=== PATIENT | female | born 1960 | race Two or more races ===

== ENCOUNTER 2018-04-11 12:57 | Outpatient (CLI) | payer OTHER ==
[~2018-04-11] VITALS: Ht 149.9 cm; Wt 75.7 kg
[2018-04-11 13:15] VITALS: BP 130/84
[2018-04-11] MEDS ORDERED: NO MEDICATION (13:22)
--- NOTE | 2018-04-11 13:34 | GI Initial Consult Note ---
History of Present Illness General Date patient seen: Apr 11, 2018 Time patient seen: 13:33 Referring physician: HMO Reason for Consultation: Screening colonoscopy Present Illness HPI 57 year old female patient presents today for screening colonoscopy. Denies any GI symptoms; denies any abdominal pain, N/V/D or constipation. Ambulatory in no distress. Denies any unintentional weight loss or changes in dietary habits. No signs of abuse or neglect. Patient is not fall risk. No history of endoscopy / colonoscopy. Home Meds Reported Medications [No Medication ] No Conflict Check 04/11/18 Med list reviewed/reconciled: Yes Allergies: Coded Allergies: No Known Allergies (Unverified , 04/11/18) Patient History History Provided By: Patient, Medical Record Past Medical History: none Past Surgical History: other - Tubal ligation. Family History Narrative Mother had colon CA Social History: Reports: other - coffee; Denies: smoking, alcohol use, drug use Review of Systems All Other Systems: negative except mentioned in HPI Physical Exam Vital Signs Date Time Temp Pulse Resp B/P (MAP) Pulse Ox O2 Delivery O2 Flow Rate FiO2 04/11/18 13:15 97.9 63 16 130/84 97 Sp02 EP Interpretation: reviewed, normal General Appearance: well appearing, no apparent distress, alert Head: normocephalic EENT: PERRL/EOMI, normal ENT inspection Neck: supple Respiratory: normal breath sounds, no respiratory distress Cardiovascular: normal rate Gastrointestinal: normal inspection, non tender, soft, normal bowel sounds, non -distended Rectal: deferred Genitourinary: no CVA tenderness Musculoskeletal: normal inspection, back normal Neurologic: normal inspection, alert, oriented x3, responsive Psychiatric: normal inspection, judgement/insight normal, memory normal Skin: normal inspection, normal color, no rash, warm/dry, palpation normal, well hydrated Lymphatic: normal inspection, no adenopathy GI: Plan Problems: (1) Colonoscopy planned Plan EGD/colonoscopy to be scheduled pending PA, will contact patient. - CLD & (Nulytely/Suprep/Movi-Prep) prep instructions given and acknowledged by patient. - NPO @ [place] day prior procedure explained. Will follow with additional recs post procedure. Seen with Dr. Ramos. Thank you for this patient referral. The patient was seen and examined at bedside and all new and available data was reviewed in the patients chart. I agree with the above findings, impression and plan. (Patient seen earlier today. Signature stamp does not reflect patient encounter time.). - MD Rere Ludwig AnhSterling DUMONT Apr 11, 2018 13:34
== END 2018-04-11 13:27 | disposition home or self-care (01) ==
LOC: PAN 12:57
DX: Z12.11 Encounter for screening for malignant neoplasm of colon (principal)
CPT/HCPCS: 99201

== ENCOUNTER 2018-08-19 13:18 | Outpatient (CLI) | payer OTHER ==
[~2018-08-19 13:18] MED LIST: NO MEDICATION
--- NOTE | 2018-08-19 13:45 | General Progress Note ---
Assessment/Plan Problem List: (1) Colon polyps ICD Codes: K63.5 - Polyp of colon SNOMED: [id number] Diagnoses Results of Pharmacotherapy: plan repeat colon in 3 years Subjective ROS Limited/Unobtainable: Yes Allergies: Coded Allergies: No Known Allergies (Unverified , 04/11/18) Objective General Appearance: alert EENT: normal ENT inspection Neck: supple Cardiovascular: normal rate Respiratory/Chest: decreased breath sounds Abdomen: normal bowel sounds, non tender, soft Extremities: non-tender Beka Ramos MD Aug 19, 2018 13:45
[2018-08-19 15:18] VITALS: BP 125/74
== END 2018-08-19 15:18 | disposition home or self-care (01) ==
LOC: PAN 13:18
DX: K63.5 Polyp of colon (principal)